=== PATIENT | male | born 1990 | race African-American/Black ===

== ENCOUNTER 2017-09-14 09:51 | Emergency (ER) | payer SELFPAY ==
--- NOTE | 2017-09-14 11:26 | ER Document Report ---
HPI - HPI Patient complains to provider of: toothache Pain Level: 5 Context: 27 yo male c/o dental pain to left lower molar x 1 month. uninsured. trying to make appointment with [facility] dental [facility] Associated Symptoms: None Exacerbated by: Food Relieved by: Denies Similar symptoms previously: Yes Recently seen / treated by doctor: No - ROS Systems Reviewed and Negative: Yes All other systems reviewed and negative - REPRODUCTIVE Reproductive: DENIES: : Past Medical History - General Information source: Patient - Social History Smoking Status: Never Smoker Frequency of alcohol use: None Drug Abuse: None Lives with: Family Family History: DM, Hyperlipidemia, Hypertension. denies: Arthritis, CAD, CVA, Malignancy, Thyroid Disfunction - Immunizations Immunizations up to date: Yes Hx Diphtheria, Pertussis, Tetanus Vaccination: Yes - 2014 Vertical Provider Document - CONSTITUTIONAL Agree With Documented VS: Yes Exam Limitations: No Limitations - INFECTION CONTROL TRAVEL OUTSIDE OF THE [place] IN LAST 30 DAYS: No - HEENT HEENT: Atraumatic, PERRLA Mouth Diagram: 1 - pain, advanced decay. no gingival abscess - NECK Neck: Normal Inspection, Supple - RESPIRATORY Respiratory: Breath Sounds Normal, No Respiratory Distress - CARDIOVASCULAR Cardiovascular: Regular Rate, Regular Rhythm - NEURO Level of Consciousness: Awake, Alert Course - Re-evaluation Re-evalutation: 09/14/17 11:23 no s/s riky's, tonsillar abscess. no airway compromise. Discharge - Discharge Clinical Impression: Tooth pain Condition: Stable Disposition: HOME, SELF-CARE Instructions: [facility], Penicillin V K ([facility]), Toothache ([facility]), Ibuprofen (General) ([facility]) Additional Instructions: Take meds as prescribed follow up with Dental for further evaluation and treatment Prescriptions: Ibuprofen [Motrin 800 Mg Tablet] 800 mg PO Q6H #20 tablet Penicillin V Potassium [Penicillin Vk 500 mg Tablet] 500 mg PO BID #20 tablet
[2017-09-14 11:50] VITALS: BP 133/82
== END 2017-09-14 11:47 | disposition home or self-care (01) ==
LOC: ER 09:51
DX: K02.9 Dental caries, unspecified (principal); K08.89 Other specified disorders of teeth and supporting structures
CPT/HCPCS: 99282

== ENCOUNTER 2018-02-10 14:09 | Emergency (ER) | payer SELFPAY ==
--- NOTE | 2018-02-10 15:49 | ER Document Report ---
ED General - General Chief Complaint: Psych Problem Stated Complaint: PSYCH EVAL Time Seen by Provider: 02/10/18 15:31 Mode of Arrival: Ambulatory Information source: Patient Notes: 27 yr old male presents with complaints of anger issues, depression. pt notes that that [facility] tuesday but he wanted evaluation since he was worried that he gets very angry. pt denies any suicidal and homicidal ideations. TRAVEL OUTSIDE OF THE [place] IN LAST 30 DAYS: No - HPI Onset: Other Onset/Duration: Intermittent Quality of pain: No pain Severity: Mild Pain Level: 1 Associated symptoms: Other Exacerbated by: Denies Relieved by: Denies Similar symptoms previously: Yes Recently seen / treated by doctor: Yes - Related Data Allergies/Adverse Reactions: No Known Allergies Allergy (Unverified 06/20/16 09:50) Past Medical History - Social History Smoking Status: Never Smoker Cigarette use (# per day): No Chew tobacco use (# tins/day): No Smoking Education Provided: No Family History: DM, Hyperlipidemia, Hypertension. denies: Arthritis, CAD, CVA, Malignancy, Thyroid Disfunction Renal/ Medical History: Denies: Hx Peritoneal Dialysis - Immunizations Immunizations up to date: Yes Hx Diphtheria, Pertussis, Tetanus Vaccination: Yes - 2014 Review of Systems - Review of Systems Notes: REVIEW OF SYSTEMS: CONSTITUTIONAL : Denies fever, chills, or sweats. Denies recent illness. EENT: Denies eye, ear, throat, or mouth pain or symptoms. Denies nasal or sinus congestion or discharge. Denies throat, tongue, or mouth swelling or difficulty swallowing. CARDIOVASCULAR: Denies chest pain. Denies palpitations or racing or irregular heart beat. Denies ankle edema. RESPIRATORY: Denies cough, cold, or chest congestion. Denies shortness of breath, difficulty breathing, or wheezing. GASTROINTESTINAL: Denies abdominal pain or distention. Denies nausea, vomiting , or diarrhea. Denies blood in vomitus, stools, or per rectum. Denies black, tarry stools. Denies constipation. GENITOURINARY: Denies difficulty urinating, painful urination, burning, frequency, blood in urine, or discharge. MUSCULOSKELETAL: Denies back or neck pain or stiffness. Denies joint pain or swelling. SKIN: Denies rash, lesions or sores. HEMATOLOGIC : Denies easy bruising or bleeding. LYMPHATIC: Denies swollen, enlarged glands. NEUROLOGICAL: Denies confusion or altered mental status. Denies passing out or loss of consciousness. Denies dizziness or lightheadedness. Denies headache. Denies weakness or paralysis or loss of use of either side. Denies problems with gait or speech. Denies sensory loss, numbness, or tingling. Denies seizures. PSYCHIATRIC: admits to depression , anger issues ALL OTHER SYSTEMS REVIEWED AND NEGATIVE. Dictation was performed using [employer] voice recognition software PHYSICAL EXAMINATION: GENERAL: Well-appearing, well-nourished and in no acute distress. HEAD: Atraumatic, normocephalic. EYES: Pupils equal round and reactive to light, extraocular movements intact, sclera anicteric, conjunctiva are normal. ENT: Nares patent, oropharynx clear without exudates. Moist mucous membranes. NECK: Normal range of motion, supple without lymphadenopathy LUNGS: Breath sounds clear to auscultation bilaterally and equal. No wheezes rales or rhonchi. HEART: Regular rate and rhythm without murmurs ABDOMEN: Soft, nontender, nondistended abdomen. No guarding, no rebound. No masses appreciated. Musculoskeletal: Normal range of motion, no pitting or edema. No cyanosis. NEUROLOGICAL: Cranial nerves grossly intact. Normal speech, normal gait. Normal sensory, motor exams PSYCH: Normal mood, normal affect. Very pleasant SKIN: Warm, Dry, normal turgor, no rashes or lesions noted. Physical Exam - Vital signs Vitals: Temp Pulse Resp BP Pulse Ox 98.2 F 93 17 163/77 H 97 02/10/18 14:17 02/10/18 14:17 02/10/18 14:17 02/10/18 14:17 02/10/18 14:17 Course - Re-evaluation Re-evalutation: 02/10/18 16:32 Patient overall is actually very pleasant, he states that whenever he gets angry he just walks away but is afraid that eventually this will not work, therefore I had mental health evaluate, they suggest zyprexa foor mood stabilization, pt is very happy with this plan After performing a Medical Screening Examination, I estimate there is LOW risk for any life threatening mental health issues. At this time the patient looks extremely well and has not attempted severe self harm. I have reevaluated this patient multiple times and no significant life threatening changes are noted. The patient and I have discussed the diagnosis and risks, and we agree with discharging home with close follow-up with the understanding that symptoms and presentations can change. We also discussed returning to the Emergency Department immediately if new or worsening symptoms occur. We have discussed the symptoms which are most concerning (hallucinations, thoughts or actions of self harm or harm to others) that necessitate immediate return. - Vital Signs Vital signs: Temp Pulse Resp BP Pulse Ox 98.0 F 76 16 146/77 H 95 02/10/18 15:51 02/10/18 15:51 02/10/18 15:51 02/10/18 15:51 02/10/18 15:51 Discharge - Discharge Clinical Impression: Mood disorder Condition: Stable Disposition: HOME, SELF-CARE Additional Instructions: Please follow-up with your appointment on Tuesday, please take the medications as prescribed, if you do begin having suicidal homicidal ideations you must return immediately for further evaluation and care Prescriptions: Olanzapine [Zyprexa 5 mg Tablet] 5 mg PO Q12 #14 tablet Referrals: ELIDA POE MD [Primary Care Provider] - Follow up as needed
[2018-02-10 15:54] VITALS: BP 146/77
== END 2018-02-10 15:55 | disposition home or self-care (01) ==
LOC: ER 14:09
DX: F32.9 Major depressive disorder, single episode, unspecified (principal); R45.4 Irritability and anger
CPT/HCPCS: 99283

== ENCOUNTER 2018-02-12 13:44 | Emergency (ER) | payer SELFPAY ==
[2018-02-12] MEDS ORDERED: OLANZAPINE INJ/PF 10 MG SDV IM ONE (14:26)
[2018-02-12 15:03] LABS: ABSOLUTE BASOPHILS # (AUTO) 0.1 10^3/uL (0.0-0.2); ABSOLUTE EOSINOPHILS # (AUTO) 0.3 10^3/uL (0.0-0.6); ABSOLUTE LYMPHOCYTES (AUTO) 2.1 10^3/uL (0.5-4.7); ABSOLUTE MONOCYTES (AUTO) 0.7 10^3/uL (0.1-1.4); ABSOLUTE NEUT (AUTO) 7.2 10^3/uL (1.7-8.2); BASOPHILS % (AUTO) 0.5 % (0-2); EOSINOPHILS % (AUTO) 3.3 % (0-6); HEMATOCRIT 41.6 % (37.9-51.0); HEMOGLOBIN 14.3 g/dL (13.5-17.0); LYMPHOCYTES % (AUTO) 20.2 % (13-45); MEAN CORPUSCULAR HEMOGLOBIN 32.9 pg (27.0-33.4); MEAN CORPUSCULAR HGB CONC 34.5 g/dL (32.0-36.0); MEAN CORPUSCULAR VOLUME 95 fl (80-97); MONOCYTES % (AUTO) 6.6 % (3-13); PLATELET COUNT 216 10^3/uL (150-450); RED BLOOD COUNT 4.36 10^6/uL (4.35-5.55); RED CELL DISTRIBUTION WIDTH 12.1 % (11.5-14.0); SEGMENTED NEUTROPHILS % (AUTO) 69.4 % (42-78); TOTAL CELLS COUNTED % (AUTO) 100 %; WHITE BLOOD COUNT 10.3 10^3/uL (4.0-10.5)
--- NOTE | 2018-02-12 15:09 | ER Document Report ---
ED Psych Disorder / Suicide - General Chief Complaint: Psych Problem Stated Complaint: PSYCH PROBLEM Time Seen by Provider: 02/12/18 14:17 Information source: Patient Notes: 27-year-old male who presents today "very angry". Patient states she has had anger management issues for many years. He denies any auditory or visual hallucinations. He denies any specific Ira that he would like to injure. He denies any suicidal ideations. Patient states he has never been formally diagnosed with any psychiatric disturbance other than anxiety. Patient denies any headache, neck pain, chest pain, abdominal pain, weakness or numbness. TRAVEL OUTSIDE OF THE [place] IN LAST 30 DAYS: No - HPI Patient complains to provider of: Aggression Onset: Other - Weeks Onset was: Gradual Quality of pain: No pain Severity: Moderate Pain Level: Denies Suicide Risk Factors: Other - Patient has recently broke up with his girlfriend Situational problems related to: Other - See above Injury to: Hand - Right hand Associated symptoms: Aggressive, Agitated Similar symptoms previously: Yes Recently seen / treated by doctor: Yes - Related Data Allergies/Adverse Reactions: No Known Allergies Allergy (Unverified 06/20/16 09:50) Past Medical History - General Information source: Patient - Social History Smoking Status: Unknown if Ever Smoked Cigarette use (# per day): No Chew tobacco use (# tins/day): No Smoking Education Provided: No Frequency of alcohol use: None Drug Abuse: None Family History: DM, Hyperlipidemia, Hypertension. denies: Arthritis, CAD, CVA, Malignancy, Thyroid Disfunction Patient has suicidal ideation: Yes Patient has homicidal ideation: Yes Renal/ Medical History: Denies: Hx Peritoneal Dialysis Psychiatric Medical History: Reports: Hx Attention Deficit Hyperactivity Disorder, Hx Depression - Immunizations Immunizations up to date: Yes Hx Diphtheria, Pertussis, Tetanus Vaccination: Yes - 2014 Review of Systems - Review of Systems Constitutional: denies: Fever EENT: denies: Eye discharge, Nose discharge Respiratory: denies: Short of breath Gastrointestinal: denies: Vomiting Genitourinary: denies: Dysuria Musculoskeletal: denies: Leg swelling Skin: Other - no hives. denies: Rash Neurological/Psychological: Other - no slurred speech -: Yes All other systems reviewed and negative Physical Exam - Vital signs Notes: Reviewed vital signs and nursing note as charted by RN. CONSTITUTIONAL: She is currently calm and cooperative in no acute distress. He answers all questions and follows all commands HEAD: Normocephalic; atraumatic EYES: PERRL; Conjunctivae clear, no nystagmus noted; sclerae non-icteric ENT: Normal nose; no rhinorrhea; moist mucous membranes; pharynx without lesions noted NECK: Supple without meningismus; non-tender; no cervical lymphadenopathy, no masses CARD: Regular rate and rhythm; no murmurs; symmetric distal pulses RESP: Normal chest excursion without splinting or tachypnea; breath sounds clear and equal bilaterally; no wheezes, no rhonchi, no rales ABD/GI: Normal bowel sounds; non-distended; soft, non-tender BACK: The back appears normal and is non-tender to palpation, there is no CVA tenderness EXT: Normal ROM in all joints; non-tender to palpation; patient has some abrasions to the fourth and fifth knuckles of the right hand. No obvious swelling or deformity SKIN: Normal color for age and race; warm; dry; good turgor; capillary refill < 2 seconds; no acute lesions noted NEURO: Moves all extremities equally; Motor and sensory function intact PSYCH: The patient's mood and manner are appropriate. Grooming and personal hygiene are appropriate. Course - Re-evaluation Re-evalutation: 02/12/18 15:08 EKG shows a heart of 66, rhythm, normal axis, narrow QRS, no ST elevation or depression Given the above history and physical examination I will order an x-ray of the right hand as well as the psychology laboratory values with psychology consult. 02/12/18 16:06 Psychiatry team is seen and evaluated the patient. They believe the patient would benefit from medication adjustment and reassessment in the morning. This has been ordered. 02/12/18 18:37 Labs as recorded. X-ray shows no obvious fracture. Patient states his initial lacerations to the dorsal aspect of the right hand coupled with abrasions with some 2 weeks ago. He does have some skin separation but I do not feel it is appropriate to suture the laceration site that is been open for this extent of time. We will place bacitracin to the wound with a dressing in place. We will place steri strips and place in a volar splint to help healing process. - Laboratory Result Diagrams: 02/12/18 14:50 02/12/18 14:50 Laboratory results interpreted by me: 02/12/18 02/12/18 14:50 14:50 Sodium 146.2 H Chloride 110 H BUN 21 H Urine Protein 30 H Urine Urobilinogen 2.0 H Urine Ascorbic Acid 40 H Salicylates < 1.0 L Acetaminophen < 10 L Discharge - Discharge Clinical Impression: Aggression aggravated Laceration of right hand Qualifiers: Encounter type: initial encounter Foreign body presence: without foreign body Qualified Code(s): S61.411A - Laceration without foreign body of right hand, initial encounter Condition: Fair Referrals: ELIDA POE MD [Primary Care Provider] - Follow up as needed
[2018-02-12 15:17] LABS: ACETAMINOPHEN < 10 ug/mL (10-30); ALANINE AMINOTRANSFERASE 44 U/L (21-72); ALBUMIN 4.3 g/dL (3.5-5.0); ALCOHOL < 10 mg/dL (NONE DETECTED); ALKALINE PHOSPHATASE 79 U/L (38-126); ANION GAP 7 (5-19); ASPARTATE AMINO TRANSFERASE 40 U/L (17-59); BILIRUBIN,DIRECT 0.3 mg/dL (0.0-0.4); BILIRUBIN,TOTAL 0.6 mg/dL (0.2-1.3); BLOOD UREA NITROGEN 21 mg/dL (7-20); CALCIUM 9.6 mg/dL (8.4-10.2); CARBON DIOXIDE 29 mmol/L (22-30); CHLORIDE 110 mmol/L (98-107); GLUCOSE 83 mg/dL (75-110); POTASSIUM 4.4 mmol/L (3.6-5.0); SALICYLATE < 1.0 mg/dL (2.0-20.0); SODIUM 146.2 mmol/L (137-145); TOTAL PROTEIN 6.7 g/dL (6.3-8.2)
[2018-02-12 15:22] LABS: APPEARANCE,URINE SLIGHTLY-CLOUDY; BILIRUBIN,URINE NEGATIVE (NEGATIVE); COLOR,URINE YELLOW; GLUCOSE, URINE NEGATIVE (NEGATIVE); KETONES,URINE NEGATIVE (NEGATIVE); LEUKOCYTE ESTERASE,URINE NEGATIVE (NEGATIVE); NITRITE,URINE NEGATIVE (NEGATIVE); PROTEIN,URINE 30 mg/dL (NEGATIVE); URINE SPECIFIC GRAVITY 1.025
[2018-02-12 15:23] LABS: URINE AMPHETAMINES SCREEN NEGATIVE; URINE BARBITURATES SCREEN NEGATIVE; URINE BENZODIAZEPINES SCREEN NEGATIVE; URINE COCAINE SCREEN NEGATIVE; URINE MARIJUANA (THC) SCREEN UNCONFIRMED POSITIVE; URINE METHADONE SCREEN NEGATIVE; URINE PHENCYCLIDINE SCREEN NEGATIVE
--- NOTE | 2018-02-12 15:53 | PSYCHOLOGICAL NOTE ---
Psych Note - Psych Note Psych Note: Spoke with Patient while in [facility]. He was highly agitated and barely would allow for me to speak. He indicated he did not fill the Zyprexa prescription because it was $40 and "I don't need that sh." Patient reported " i bought what I needed off the street so I just need to stay here until my appointment [facility] so I don't hurt anyone. I can't afford the street stuff anymore so I need to stay here." When questioned further, Patient stated he purchased 25mg of Adderall and 5 mg of Xanax daily since the 10 of February and that is the only medication he needs to make him better. When advised he would not be prescribed that medication while at [facility], he became more agitated and stated "man, no one wants to help. Dr. Vasquez is only one." When asked when it was last prescribed for him, he advised Xanax was never prescribed for him and the Adderall was last prescribed for him by Dr. Vasquez last year. Review of the [place] Controlled Substance Abuse Registry revealed he has not been prescribed Xanax and there is not evidence of Dr. Vasquez prescribing any adderall to him in 2017. There is significant history of pain medications and multiple physicians prescribing them through the past few years only. Patient was very loud and continued to be agitated and stated he was going to sit in the lobby until his appointment if we did not give him what he wanted which was a bed and his desired medications. Spoke with Security and Dr. Jackson and it was agreed for Patient to be placed under petition, provided a bed, and given Zyprexa 10 mg IM versus any controlled substances. Met with Patient again after he was placed in a room. He was much more calm and apologized for his behavior. He reported he was willing to take the zyprexa hot ordered by Dr. Jackson and the schedule zyprexa. He was advised he was placed under IVC and would met with Skip in the morning to develop a new treatment plan regarding his medications and provider. He was in agreement and willing to cooperate throughout his stay. Patient was alert and oriented to person, place, time, and circumstance. Mood was highly agitated and uncooperative. Affect was mood congruent. He denied suicidal / homicidal ideation, intent, or plan. He denied auditory / visual hallucinations and there was no evidence of delusions. Thought processes were linear and organized but irrational. Conversational speech was loud in tone but within normal limits for prosody. Intellectual abilities were estimated within the average range. Attention and concentration was fair, insight, judgment and impulse control was poor. Medication recommendation from psychiatric provider include: 1. Zyprexa 5 mg twice per day scheduled (start tonight) 2. Cogentin 1 mg daily 3. Clonidine 0.1 mg at bedtime Impression / Plan: Patient is recommended for IVC Petition (24 hour hold) secondary to agitation and irritability. He is withdrawing from amphetamines and benzo's he purchased off the street since his last visit on 02/10/2018. He is scheduled for an outpatient visit with [facility] on Tue. for medication evaluation. Patient is requesting adderall and xanax and advised he would not receive those medications from the ED, and he would need to speak to his outpatient provider about those medications. Patient will speak with behavioral health clinician in the morning to develop a treatment plan for going forward. ED Physician in agreement with recommendation and disposition.
[2018-02-12] MEDS ORDERED: BENZTROPINE MESYLATE 1 MG TABLET PO SCH (16:00)
[2018-02-12] MEDS ORDERED: CLONIDINE HCL 0.1 MG TABLET PO SCH (16:00)
--- NOTE | 2018-02-12 16:44 | RADIOLOGY REPORT (SQ) ---
EXAM DESCRIPTION: HAND RIGHT 3 VIEWS COMPLETED DATE/TIME: 02/12/2018 4:18 pm REASON FOR STUDY: 45; struck a wall COMPARISON: None. NUMBER OF VIEWS: Three views right hand. LIMITATIONS: Mildly limited positioning, flexed fingers. FINDINGS: There is no acute or significant bone, joint or soft tissue abnormality. OTHER: No other significant finding. IMPRESSION: NORMAL STUDY. TECHNICAL DOCUMENTATION: JOB ID: [id number] Reading location - IP/workstation name: [email or web address]
[2018-02-12] MEDS: OLANZAPINE 5 MG TABLET PO SCH (18:19)
--- NOTE | 2018-02-12 21:18 | EKG REPORT ---
SEVERITY:- OTHERWISE NORMAL ECG - SINUS ARRHYTHMIA, RATE 56-81 : Confirmed by: Wanda Baron 12-Feb-2018 21:16:34
[2018-02-13] MEDS: OLANZAPINE 5 MG TABLET PO SCH (10:09)
[2018-02-13 10:15] VITALS: BP 152/74
--- NOTE | 2018-02-13 13:39 | PSYCHOLOGICAL NOTE ---
Psych Note - Psych Note Psych Note: Reason for Consult: Aggression 27-year-old male who presents today "very angry". Patient states she has had anger management issues for many years. He denies any auditory or visual hallucinations. He denies any specific person that he would like to injure. He denies any suicidal ideations. Patient states he has never been formally diagnosed with any psychiatric disturbance other than anxiety. Clinician conducted checking with patient Patient is sitting calmly and openly engages with clinician. He discusses the difficulty he had in picking up his prescriptions from [facility] stating that he told him he would be $40 and that his good Rx savings card only took off $0.20. Patient described frustration which led to his behavioral outburst last night. Patient denies suicidal and homicidal ideation. Patient states he is feeling much better after receiving medications here at [facility]. He agrees to continue medication regimen. Clinician attempted to conduct psychoeducation on his symptoms and the use of both Adderall and Xanax however patient patient was unwilling to contemplate not being medicated with Adderall. He does understand that this is a medication that he needs to talk to about his outpatient mental health provider, [facility]. Patient does agree that the Zyprexa is helping calm him much as Xanax would have and agrees to continue taking. Patient discloses wanting to be able to have enough time to mow some lawn so he can earn castillo to orange picker his medications. Patient states he will be continuing his mental health treatment at [facility](first medication appointment is on Tuesday). Medication recommendation per [facility] contracted psychiatrist Dr. Han COLE are as follows 1. Zyprexa 5 mg twice per day scheduled (start tonight) 2. Cogentin 1 mg daily 3. 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 Patient is calm and can clearly talk with mental health condition. He discloses that he good Rx savings card only took $ 0.20 off of his prescription on [address] so ended up not being able to get it. Clinician printed out additional coupons for all prescribed medications to ensure exact amounts. Patient demonstrated forward thinking identifying going to work today so he can earn some castillo to purchase his prescriptions. Patient has a upcoming appointment with [facility] on Tuesday. It is recommended to continue with that previously scheduled appointment. Dr. Butts was consulted and the care management this patient; attending physician is agreement with recommendations and disposition. ED Physician in agreement with recommendation and disposition.
== END 2018-02-13 10:15 | disposition home or self-care (01) ==
LOC: ER 13:44
DX: S61.411A Laceration without foreign body of right hand, initial encounter (principal); F39 Unspecified mood [affective] disorder; W45.8XXA Other foreign body or object entering through skin, initial encounter
CPT/HCPCS: 36415; 80053; 80307; 81001; 85025; 93005; 93010; 96372; 99285